=== PATIENT | female | born 1945 | race Caucasian/White ===

== ENCOUNTER → 2020-07-19 | Outpatient (CLI) | payer MEDICARE, OTHER | LOC: KOH-I 15:21 | DX: M54.2 Cervicalgia (principal); M54.9 Dorsalgia, unspecified; R05 Cough; M48.02 Spinal stenosis, cervical region; M85.88 Other specified disorders of bone density and structure, other site; M40.56 Lordosis, unspecified, lumbar region; J43.9 Emphysema, unspecified | CPT/HCPCS: 71046; 72050; 72070; 72100 ==